=== PATIENT | female | born 1960 | race Caucasian/White ===

== ENCOUNTER → 2020-01-28 09:00 | Outpatient (BNVA) | payer OTHER, SELFPAY | PROVIDERS: Visit Provider Nurse Practitioner Family | DX: I10 Essential (primary) hypertension (principal); E03.9 Hypothyroidism, unspecified; E87.6 Hypokalemia; E89.40 Asymptomatic postprocedural ovarian failure; G47.00 Insomnia, unspecified | CPT/HCPCS: 80053; 80061; 84443; 85025 ==

== ENCOUNTER 2020-07-08 11:08 | Outpatient (CLI) | payer OTHER, SELFPAY ==
--- NOTE | 2020-07-08 11:19 | MM_ITS ---
WS: [id number] BILATERAL SCREENING DIGITAL MAMMOGRAM WITH CAD HISTORY: SCREENING COMPARISON: 10/12/2017 and 11/20/2014 Bilateral CC and MLO views submitted. Computer aided detection analyzed. Breast composition: The breasts are heterogeneously dense, which may obscure small masses. No suspici ous masses, microcalcifications or architectural distortion. Benign calcifications in each breast. MM/[place] [id number] IMPRESSION: BI-RADS: 2-Benign FOLLOW UP: 1 Year Follow-up
== END 2020-07-08 11:09 | disposition home or self-care (01) ==
LOC: RADSHAW 11:12
PROVIDERS: Visit Provider Obstetrics & Gynecology
DX: Z12.31 Encounter for screening mammogram for malignant neoplasm of breast (principal)
CPT/HCPCS: 77067

== ENCOUNTER → 2020-11-09 13:41 | Outpatient (BNVA) | payer OTHER, SELFPAY | PROVIDERS: PCP Nurse Practitioner Family; Visit Provider Nurse Practitioner Family | DX: J02.9 Acute pharyngitis, unspecified (principal); I10 Essential (primary) hypertension; E03.9 Hypothyroidism, unspecified; J98.8 Other specified respiratory disorders; J06.9 Acute upper respiratory infection, unspecified; E87.6 Hypokalemia; K59.00 Constipation, unspecified | CPT/HCPCS: 80053; 80061; 84443; 85025; 87071; 87880 ==

== ENCOUNTER 2021-09-08 11:02 | Outpatient (CLI) | payer OTHER, SELFPAY ==
--- NOTE | 2021-09-08 11:19 | MM_ITS ---
WS: [id number] SCREENING 3D TOMOSYNTHESIS DIGITAL MAMMOGRAM WITH CAD HISTORY: SCREENING COMPARISON: 07/08/2020, 10/12/2017 and 07/31/2012 Bilateral CC and MLO views submitted. Computer aided detection analyzed. Breast composition: The breasts are heterogeneously dense, which may obscure small masses. Partially obscured asymmetries in the posterior RIGHT breast central and just lateral to the nipple. These asymmetries measured 5 to 6 mm. On the lateral projection these are probably within the superio r lateral RIGHT breast. Additional imaging necessary. Benign calcifications within each breast. MM/[place] [id number] IMPRESSION: BI-RADS: 0-Incomplete: Need additional imaging evaluation FOLLOW UP: Need Additional Imaging RIGHT breast: Spot compression views with 3-D (CC and MLO). True ML. Ultrasound to follow if abnormality persists.
== END 2021-09-08 11:03 | disposition home or self-care (01) ==
LOC: RADSHAW 11:04
PROVIDERS: PCP Nurse Practitioner Family; Visit Provider Obstetrics & Gynecology
DX: Z12.31 Encounter for screening mammogram for malignant neoplasm of breast (principal)
CPT/HCPCS: 77063; 77067

== ENCOUNTER 2021-09-27 09:36 | Outpatient (CLI) | payer OTHER, SELFPAY ==
--- NOTE | 2021-09-27 10:20 | MM_ITS ---
WS: [id number] ADDITIONAL VIEWS RIGHT MAMMOGRAM RIGHT BREAST ULTRASOUND HISTORY: R92.8 - Other abnormal and inconclusive findings on diagnostic imaging. COMPARISON: 09/08/2021 and 07/08/2020 RIGHT MAMMOGRAM: Spot compression views and true ML. The asymmetries in the posterior lateral RIGHT breast become less apparent with additional imaging. T here is still mild asymmetry in some of the soft tissues are obscured by the density of the breast. U ltrasound to follow. RIGHT BREAST ULTRASOUND 2-D and color Doppler imaging submitted. Ultrasound is directed along the 10-12 o'clock axis and just central to the nipple. There is a simple cyst at 10:00, 3 cm from the nipple. Cyst measures 7 x 6 x 4 mm. Additional smaller cyst posteriorly at 12:00, 2 cm from the nipple. There is a small cluster cyst at the areola. No suspicious mass is i dentified. MM/[place] [id number] IMPRESSION: BI-RADS: 2-Benign FOLLOW UP: 1 Year Follow-up Asymmetries in the RIGHT breast probably due to the small benign cysts that are identified by ultrasound.
== END 2021-09-27 09:37 | disposition home or self-care (01) ==
LOC: RAD 09:39
PROVIDERS: PCP Nurse Practitioner Family; Visit Provider Obstetrics & Gynecology
DX: R92.8 Other abnormal and inconclusive findings on diagnostic imaging of breast (principal); N64.89 Other specified disorders of breast
CPT/HCPCS: 76642; 77061

== ENCOUNTER → 2022-01-19 09:27 | Outpatient (BNVA) | payer OTHER, SELFPAY | PROVIDERS: PCP Nurse Practitioner Family; Visit Provider Family Medicine | DX: E03.9 Hypothyroidism, unspecified (principal); I10 Essential (primary) hypertension; N95.1 Menopausal and female climacteric states | CPT/HCPCS: 80053; 80061; 84443 ==

== ENCOUNTER 2022-09-12 10:03 | Outpatient (CLI) | payer OTHER, SELFPAY ==
--- NOTE | 2022-09-12 10:14 | MM_ITS ---
WS: [id number] VIEWS: MLO and CC views both breasts. 3D digital tomosynthesis is also included in this exam. Comparison made with prior exam of 10/17/2013, 11/20/2014, 10/12/2017, 07/08/2020 and 09/08/2021. Findings: There was no sign of mass, architectural distortion or suspicious calcification in either breast. Sta ble appearing fibroglandular densities in both breasts.Heterogeneously dense MM/[place] [id number] Impression: BI-RADS: 2-Benign FOLLOW-UP: 1 Year Follow-up This mammogram was also analyzed by the Computer Aided Detection System R2 Imag e Internal Grinder.
== END 2022-09-12 10:04 | disposition home or self-care (01) ==
LOC: RAD 10:06
PROVIDERS: PCP Nurse Practitioner Family; Visit Provider Obstetrics & Gynecology
DX: Z12.31 Encounter for screening mammogram for malignant neoplasm of breast (principal)
CPT/HCPCS: 77063; 77067

== ENCOUNTER → 2023-02-09 11:22 | Outpatient (BNVA) | payer OTHER, SELFPAY | PROVIDERS: PCP Nurse Practitioner Family; Visit Provider Family Medicine | DX: E03.9 Hypothyroidism, unspecified (principal); I10 Essential (primary) hypertension; E87.6 Hypokalemia | CPT/HCPCS: 80053; 80061; 84443 ==

== ENCOUNTER 2023-12-04 09:30 | Outpatient (CLI) | payer OTHER, SELFPAY ==
--- NOTE | 2023-12-04 09:41 | MM_ITS ---
WS: [id number] BILATERAL SCREENING DIGITAL TOMOSYNTHESIS MAMMOGRAM WITH CAD HISTORY: SCREENING COMPARISON: 09/12/2022, 09/27/2021 and 11/20/2014 Bilateral CC and MLO views with tomosynthesis and synthetic mammography submitted. Computer aided det ection analyzed. Breast composition: The breasts are heterogeneously dense, which may obscure small masses. No suspici ous masses, microcalcifications or architectural distortion. Benign scattered calcifications. MM/[place] [id number] IMPRESSION: BI-RADS: 2-Benign FOLLOW UP: 1 Year Follow-up
== END 2023-12-04 09:31 | disposition home or self-care (01) ==
LOC: RAD 09:30
PROVIDERS: PCP Nurse Practitioner Family; Visit Provider Obstetrics & Gynecology
DX: Z12.31 Encounter for screening mammogram for malignant neoplasm of breast (principal); R92.333 Mammographic heterogeneous density, bilateral breasts; R92.1 Mammographic calcification found on diagnostic imaging of breast
CPT/HCPCS: 77063; 77067

== ENCOUNTER → 2024-08-26 12:36 | Outpatient (BNVA) | payer OTHER, SELFPAY | PROVIDERS: PCP Nurse Practitioner Family; Visit Provider Nurse Practitioner Family | DX: I10 Essential (primary) hypertension (principal) | CPT/HCPCS: 80053; 80061; 81000; 81003; 84439; 84443; 85025 ==

== ENCOUNTER 2025-02-05 09:47 | Outpatient (CLI) | payer OTHER, SELFPAY ==
--- NOTE | 2025-02-05 09:54 | MM_ITS ---
WS: [id number] BILATERAL SCREENING DIGITAL TOMOSYNTHESIS MAMMOGRAM WITH CAD HISTORY: SCREENING COMPARISON: 12/04/2023, 09/12/2022 Bilateral CC and MLO views with tomosynthesis and synthetic mammography submitted. Computer aided detection analyzed. Breast composition: The breasts are heterogeneously dense, which may obscure small masses. No suspicious masses, microcalcifications or architectural distortion. Benign calcifications in each breast. MM/MM scr tomosynthesis [id number] IMPRESSION: BI-RADS: 2 - Benign FOLLOW UP: 1 Year Follow-up
== END 2025-02-05 09:48 | disposition home or self-care (01) ==
LOC: RAD 09:48
PROVIDERS: PCP Nurse Practitioner Family; Visit Provider Nurse Practitioner Obstetrics & Gynecology
DX: Z12.31 Encounter for screening mammogram for malignant neoplasm of breast (principal); R92.333 Mammographic heterogeneous density, bilateral breasts; R92.1 Mammographic calcification found on diagnostic imaging of breast
CPT/HCPCS: 77063; 77067

== ENCOUNTER → 2025-06-03 09:27 | Outpatient (BNVA) | payer OTHER, SELFPAY | PROVIDERS: PCP Nurse Practitioner Family; Visit Provider Nurse Practitioner Family | DX: E03.9 Hypothyroidism, unspecified (principal); I10 Essential (primary) hypertension | CPT/HCPCS: 80053; 80061; 84439; 84443; 85025 ==